=== PATIENT | female | born 1930 | race Caucasian/White ===

== ENCOUNTER 2018-03-11 12:55 | Emergency (ER) | payer MEDICARE, BC, MEDICAID ==
[2018-03-11 13:05] VITALS: BP 148/44
--- NOTE | 2018-03-11 13:34 | EDM.PDOC ---
ED HPI GENERAL MEDICAL PROBLEM - General Chief Complaint: Cardiovascular Problem Stated Complaint: SOB [id number] Time Seen by Provider: 03/11/18 13:33 Source of Information: Reports: Patient, EMS, Old Records, RN, RN Notes Reviewed History Limitations: Reports: No Limitations - History of Present Illness INITIAL COMMENTS - FREE TEXT/NARRATIVE: Pt presents to ER from home by POV with c/o "a-fib" with lightheadedness, near syncope, and mild chest pressure. Pt states that she has had similar symptoms in the past, but the episodes have been increasing in frequency and duration. She denies shortness of breath, nausea, or edema. 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 She did not take her metoprolol today. Duration: Getting Worse, Intermittent, Recurring Location: Reports: Chest, Generalized Quality: Reports: Pressure Severity: Severe Improves with: Reports: None Worsens with: Reports: None Associated Symptoms: Reports: No Other Symptoms Mid-Sternal Chest Pain Score (Numeric/FACES): 3 - Related Data Allergies Allergy/AdvReac Type Severity Reaction Status Date / Time aspirin [From Aggrenox] Allergy Cannot Verified 03/11/18 13:05 Remember naproxen sodium [From Aleve] Allergy Headache Verified 03/11/18 13:05 sulfacetamide Allergy Mouth Sores Verified 03/11/18 13:05 atorvastatin calcium AdvReac Body Aches Verified 03/11/18 13:05 [From Lipitor] dipyridamole [From Aggrenox] AdvReac Body Aches Verified 03/11/18 13:05 pravastatin sodium AdvReac Body Aches Verified 03/11/18 13:05 [From Pravachol] rosuvastatin calcium AdvReac Body Aches Verified 03/11/18 13:05 [From Crestor] Home Meds: Home Meds Acetaminophen [Tylenol Extra Strength] 1,000 mg PO Q6H PRN 10/27/13 [History] Aspirin/Calcium Carbonate/Mag [Aspirin Buffered 325 mg Tab] 325 mg PO DAILY [History] Clotrimazole/Betamethasone Dip [Lotrisone Cream] 1 applic TP DAILY 10/27/13 [ History] Loperamide [Immodium] 4 mg PO ASDIRECTED PRN 10/27/13 [History] Multivit-Min/FA/Lycopene/Lut [Centrum Silver] 1 each PO DAILY 10/27/13 [History] Sertraline [Zoloft] 25 mg PO DAILY 10/27/13 [History] Simvastatin [Zocor] 10 mg PO BEDTIME 10/27/13 [History] Furosemide 20 mg PO DAILY 03/11/18 [History] Levothyroxine 25 mcg PO ACBREAKFAST 03/11/18 [History] Metoprolol Tartrate 1.5 tab PO BID 03/11/18 [History] Past Medical History HEENT History: Reports: Cataract, Impaired Vision Other HEENT History: wears glasses Cardiovascular History: Reports: Afib, High Cholesterol, Hypertension Respiratory History: Reports: None Gastrointestinal History: Reports: GERD Genitourinary History: Reports: None 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 Musculoskeletal History: Reports: Arthritis, Osteoarthritis Neurological History: Reports: None Psychiatric History: Reports: None Endocrine/Metabolic History: Reports: Hypothyroidism, Obesity/BMI 30+ Hematologic History: Reports: Idiopathic Thrombocytopenia Immunologic History: Reports: None Oncologic (Cancer) History: Reports: None Dermatologic History: Reports: None - Infectious Disease History Infectious Disease History: Reports: Chicken Pox, Measles, Mumps - Past Surgical History Head Surgeries/Procedures: Reports: None HEENT Surgical History: Reports: Cataract Surgery GI Surgical History: Reports: Appendectomy Female Surgical History: Reports: Hysterectomy Musculoskeletal Surgical History: Reports: Knee Replacement Social & Family History - Family History Family Medical History: Noncontributory - Tobacco Use Smoking Status *Q: Never Smoker Second Hand Smoke Exposure: No - Recreational Drug Use Recreational Drug Use: No - Living Situation & Occupation Occupation: Retired ED ROS GENERAL - Review of Systems Review Of Systems: ROS reveals no pertinent complaints other than HPI. ED EXAM, GENERAL - Physical Exam Exam: See Below Exam Limited By: No Limitations General Appearance: Alert, WD/WN, No Apparent Distress, Obese Eye Exam: Bilateral Eye: Normal Inspection Ears: Hearing Grossly Normal Nose: Normal Inspection, Normal Mucosa, No Blood Throat/Mouth: Normal Inspection, Normal Lips, Normal Teeth, Normal Gums, Normal Oropharynx, Normal Voice, No Airway Compromise Head: Atraumatic, Normocephalic Neck: Normal Inspection, Supple, Non-Tender, Full Range of Motion Respiratory/Chest: No Respiratory Distress, Lungs Clear, Normal Breath Sounds, No Accessory Muscle Use, Chest Non-Tender Cardiovascular: Bradycardia, Irregularly Irregular, Other (Trace B/L lower extremity pitting edema) GI/Abdominal: Normal Bowel Sounds, Soft, Non-Tender, No Distention Back Exam: Normal Inspection Extremities: Normal Range of Motion, Non-Tender. No: Heladio's Sign Neurological: Alert, Oriented, CN II-XII Intact, Normal Cognition, No Motor/ Sensory Deficits Psychiatric: Normal Mood Skin Exam: Warm, Dry, Intact, Normal Color, No Rash EKG INTERPRETATION EKG Date: 03/11/18 Time: 13:21 Rhythm: Other (slow sinus arrhythmia, rate 52-61.) [place]: LAD-Left [place] Deviation (borderline) P-Wave: Present QRS: Normal ST-T: Normal QT: Normal Course - Vital Signs Last Recorded V/S: Last Vital Signs Temp 36.3 C 03/11/18 13:00 Pulse 42 L 03/11/18 13:00 Resp 16 03/11/18 13:00 BP 148/44 H 03/11/18 13:00 Pulse Ox 100 03/11/18 13:00 - Orders/Labs/Meds Orders: Active Orders 24 hr Category Date Time Status EKG Documentation Completion [RC] STAT Care 03/11/18 13:26 Active Peripheral IV Care [RC] . DIRECTED Care 03/11/18 13:28 Active Sodium Chloride 0.9% [Saline Flush] Med 03/11/18 13:26 Active 10 ml FLUSH ASDIRECTED PRN Peripheral IV Insertion Adult [OM.PC] Routine Oth 03/11/18 13:26 Ordered Medication Orders Sodium Chloride (Saline Flush) 10 ml FLUSH ASDIRECTED PRN PRN Reason: Keep Vein Open Last Admin: 03/11/18 13:35 Dose: 10 ml Labs: Laboratory Tests 03/11/18 03/11/18 03/11/18 Range/Units 13:30 13:30 13:30 WBC 7.6 (5.0-10.0) 10^3/uL RBC 4.04 L (4.2-5.4) 10^6/uL Hgb 12.7 D (12.0-16.0) g/dL Hct 40.6 (37.0-47.0) % MCV 100.5 H (80-100) fL MCH 31.4 (27.0-34.0) pg MCHC 31.3 L (33.0-35.0) g/dL Plt Count 111 L (150-450) 10^3/uL Neut % (Auto) 63.8 (42.2-75.2) % Lymph % (Auto) 25.0 (20.5-50.1) % [place] % (Auto) 9.3 H (2-8) % Eos % (Auto) 1.4 (1.0-3.0) % Baso % (Auto) 0.5 (0.0-1.0) % Sodium 140 (135-145) mmol/L Potassium 4.2 (3.6-5.0) mmol/L Chloride 103 (101-111) mmol/L Carbon Dioxide 26.0 (21.0-31.0) mmol/L Anion Gap 15.2 BUN 24 H (7-18) mg/dL Creatinine 1.0 (0.6-1.3) mg/dL Est Cr Clr Drug Dosing 34.02 mL/min Estimated GFR (MDRD) 53 BUN/Creatinine Ratio 24.00 Glucose 133 H (74-105) mg/dL Calcium 9.4 (8.4-10.2) mg/dl Magnesium 2.1 (1.8-2.5) mg/dL Total Bilirubin 1.1 H (0.2-1.0) mg/dL AST 27 (10-42) IU/L ALT 19 (10-60) IU/L Alkaline Phosphatase 68 (42-121) IU/L Troponin I < 0.02 (0.00-0.02) ng/ml Total Protein 7.3 (6.7-8.2) g/dl Albumin 4.2 (3.2-5.5) g/dl Globulin 3.1 Albumin/Globulin Ratio 1.35 TSH, Ultra Sensitive 6.11 H (0.45-5.33) uIu/mL Meds: Medications Generic Name Dose Route Start Last Admin Trade Name Freq PRN Reason Stop Dose Admin Sodium Chloride 10 ml 03/11/18 13:26 03/11/18 13:35 Saline Flush FLUSH 10 ml ASDIRECTED PRN Administration Keep Vein Open - Radiology Interpretation Free Text/Narrative:: [facility] Final Radiology Report Call: [phone] assistance Online chat: [email or web address] Name: KEITH MALONE Age: 87Years F Date: 03/11/2018 SSN: -- : [id number] Study: XR CHEST 1 VIEW Requesting Physician: ISRAEL WHYTE Images: 1 Addl Studies: Provided Clinical History: Contrast: Contrast Medium: Contrast Amount: Contrast Method: CONFIDENTIALITY STATEMENT This report is intended only for use by the referring physician, and only in accordance with law. If you received this in error, call [phone]. Page 1 of 1 EXAM: XR Chest, 1 View CLINICAL HISTORY: 87 years old, female; Wheezing. TECHNIQUE: Frontal view of the chest. COMPARISON: No relevant prior studies available. FINDINGS: Lungs: No lung consolidation or pulmonary edema. Pleural space: No pleural effusion or pneumothorax. Heart: The heart is enlarged. Mediastinum: The mediastinal contours are normal. Bones/joints: No acute osseous abnormality. IMPRESSION: No acute abnormality. Thank you for allowing us to participate in the care of your patient. Dictated and Authenticated by: Jaxon Young MD 03/11/2018 2:19 PM Central Time ([place] & [place]) Departure - Departure Time of Disposition: 15:30 Disposition: DC/Tfer to [facility] 02 Reason for Transfer *Q: Primary PCI Indicated Condition: Serious Clinical Impression: Paroxysmal atrial fibrillation, Bradycardia, Near syncope Forms: ED Department Discharge, Interfacility Transfer EMTALA - My Orders Last 24 Hours: My Active Orders 03/11/18 13:26 EKG Documentation Completion [RC] STAT Sodium Chloride 0.9% [Saline Flush] 10 ml FLUSH ASDIRECTED PRN Peripheral IV Insertion Adult [OM.PC] Routine 03/11/18 13:28 Peripheral IV Care [RC] . DIRECTED - Assessment/Plan Last 24 Hours: My Active Orders 03/11/18 13:26 EKG Documentation Completion [RC] STAT Sodium Chloride 0.9% [Saline Flush] 10 ml FLUSH ASDIRECTED PRN Peripheral IV Insertion Adult [OM.PC] Routine 03/11/18 13:28 Peripheral IV Care [RC] . DIRECTED
[2018-03-11] MEDS: Sodium Chloride 0.9% 10 ML Syringe FLUSH PRN (13:35)
[2018-03-11 14:00] LABS: ANION GAP 15.2; CHLORIDE,CL 103 mmol/L (101-111); SODIUM,NA 140 mmol/L (135-145)
== END 2018-03-11 17:28 ==
LOC: DL.ED 12:55
DX: I48.0 Paroxysmal atrial fibrillation (principal); R00.1 Bradycardia, unspecified; R55 Syncope and collapse; I48.91 Unspecified atrial fibrillation; E78.00 Pure hypercholesterolemia, unspecified; I10 Essential (primary) hypertension; K21.9 Gastro-esophageal reflux disease without esophagitis; Z79.899 Other long term (current) drug therapy; Z88.8 Allergy status to other drugs, medicaments and biological substances; Z79.82 Long term (current) use of aspirin; E03.9 Hypothyroidism, unspecified
CPT/HCPCS: 36415; 71045; 80053; 83735; 84443; 84484; 85025; 93005; 93010; 99284; 99285; J7050

== ENCOUNTER 2018-08-17 11:39 | Emergency (ER) | payer MEDICARE, BC, MEDICAID ==
[2018-08-17 12:07] VITALS: BP 156/54
--- NOTE | 2018-08-17 12:10 | EDM.PDOC ---
ED HPI GENERAL MEDICAL PROBLEM - General Stated Complaint: BLOOD IN STOOL Time Seen by Provider: 08/17/18 12:00 Source of Information: Reports: Patient History Limitations: Reports: No Limitations - History of Present Illness INITIAL COMMENTS - FREE TEXT/NARRATIVE: This 87 yo female patient reports to the ED after noticing blood in her urine today. The patient reports similar symptoms in the past related to a UTI. The patient reports diffuse lower back and lower abdomen pain at this time. Onset: Today Duration: Constant Location: Reports: Generalized Quality: Reports: Other Severity: Mild Improves with: Reports: None Worsens with: Reports: None Context: Reports: Other Associated Symptoms: Reports: No Other Symptoms - Related Data Allergies Allergy/AdvReac Type Severity Reaction Status Date / Time aspirin [From Aggrenox] Allergy Cannot Verified 08/17/18 11:49 Remember naproxen sodium [From Aleve] Allergy Headache Verified 08/17/18 11:49 sulfacetamide Allergy Mouth Sores Verified 08/17/18 11:49 atorvastatin calcium AdvReac Body Aches Verified 08/17/18 11:49 [From Lipitor] dipyridamole [From Aggrenox] AdvReac Body Aches Verified 08/17/18 11:49 pravastatin sodium AdvReac Body Aches Verified 08/17/18 11:49 [From Pravachol] rosuvastatin calcium AdvReac Body Aches Verified 08/17/18 11:49 [From Crestor] Home Meds: Home Meds Acetaminophen [Tylenol Extra Strength] 1,000 mg PO Q6H PRN 10/27/13 [History] Clotrimazole/Betamethasone Dip [Lotrisone Cream] 1 applic TP DAILY 10/27/13 [ History] Loperamide [Immodium] 4 mg PO ASDIRECTED PRN 10/27/13 [History] Multivit-Min/FA/Lycopene/Lut [Centrum Silver] 1 each PO DAILY 10/27/13 [History] Sertraline [Zoloft] 25 mg PO DAILY 10/27/13 [History] Simvastatin [Zocor] 10 mg PO BEDTIME 10/27/13 [History] Furosemide 20 mg PO DAILY 03/11/18 [History] Levothyroxine 25 mcg PO ACBREAKFAST 03/11/18 [History] Apixaban [Eliquis] 5 mg PO BID 08/17/18 [History] Pantoprazole Sodium 40 mg PO BID 08/17/18 [History] Sotalol HCl [Sotalol] 80 mg PO BID 08/17/18 [History] Past Medical History HEENT History: Reports: Cataract, Impaired Vision Other HEENT History: wears glasses Cardiovascular History: Reports: Afib, High Cholesterol, Hypertension Respiratory History: Reports: None Gastrointestinal History: Reports: GERD Genitourinary History: Reports: None 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 Musculoskeletal History: Reports: Arthritis, Osteoarthritis Neurological History: Reports: None Psychiatric History: Reports: None Endocrine/Metabolic History: Reports: Hypothyroidism, Obesity/BMI 30+ Hematologic History: Reports: Idiopathic Thrombocytopenia Immunologic History: Reports: None Oncologic (Cancer) History: Reports: None Dermatologic History: Reports: None - Infectious Disease History Infectious Disease History: Reports: Chicken Pox, Measles, Mumps - Past Surgical History Head Surgeries/Procedures: Reports: None HEENT Surgical History: Reports: Cataract Surgery GI Surgical History: Reports: Appendectomy Female Surgical History: Reports: Hysterectomy Musculoskeletal Surgical History: Reports: Knee Replacement Social & Family History - Family History Family Medical History: Noncontributory - Living Situation & Occupation Occupation: Retired ED ROS GENERAL - Review of Systems Review Of Systems: ROS reveals no pertinent complaints other than HPI. ED EXAM, RENAL/ - Physical Exam Exam: See Below Exam Limited By: No Limitations General Appearance: Alert, WD/WN, No Apparent Distress Eye Exam: Bilateral Eye: EOMI, Normal Inspection, PERRL Ears: Normal External Exam, Normal Canal, Hearing Grossly Normal, Normal TMs, Other (bilateral hearing aids (given to daughter during assessment)) Nose: Normal Inspection, Normal Mucosa, No Blood Throat/Mouth: Normal Inspection, Normal Lips, Normal Teeth, Normal Gums, Normal Oropharynx, Normal Voice, No Airway Compromise Head: Atraumatic, Normocephalic Neck: Normal Inspection Respiratory/Chest: No Respiratory Distress, Lungs Clear, Normal Breath Sounds, No Accessory Muscle Use, Chest Non-Tender Cardiovascular: Normal Peripheral Pulses, Regular Rate, Rhythm, No Edema, No Gallop, No JVD, No Murmur, No Rub GI/Abdominal: Normal Bowel Sounds, Soft, No Organomegaly, No Distention, No Abnormal Bruit, No Mass, Tender (diffuse lower abdominal tenderness) (Female) Exam: Deferred Rectal (Female) Exam: Deferred Back Exam: Normal Inspection, Full Range of Motion, Other (mild lower back discomfort) Extremities: Normal Inspection, Normal Range of Motion, Non-Tender, Normal Capillary Refill, No Pedal Edema Neurological: Alert, Oriented, CN II-XII Intact, Normal Cognition, Normal Gait, Normal Reflexes, No Motor/Sensory Deficits Psychiatric: Normal Affect, Normal Mood Skin Exam: Warm, Dry, Intact, Normal Color, No Rash Lymphatic: No Adenopathy Course - Vital Signs Last Recorded V/S: Last Vital Signs Temp 36.8 C 08/17/18 11:44 Pulse 66 08/17/18 11:44 Resp 18 08/17/18 11:44 BP 156/54 H 08/17/18 11:44 Pulse Ox 99 08/17/18 11:44 - Orders/Labs/Meds Labs: Laboratory Tests 08/17/18 08/17/18 08/17/18 Range/Units 11:46 11:52 11:52 WBC 6.4 (5.0-10.0) 10^3/uL RBC 4.17 L (4.2-5.4) 10^6/uL Hgb 12.9 (12.0-16.0) g/dL Hct 40.7 (37.0-47.0) % MCV 97.6 (80-100) fL MCH 30.9 (27.0-34.0) pg MCHC 31.7 L (33.0-35.0) g/dL Plt Count 113 L (150-450) 10^3/uL Neut % (Auto) 66.3 (42.2-75.2) % Lymph % (Auto) 23.6 (20.5-50.1) % [place] % (Auto) 8.9 H (2-8) % Eos % (Auto) 0.9 L (1.0-3.0) % Baso % (Auto) 0.3 (0.0-1.0) % Sodium 138 (135-145) mmol/L Potassium 3.9 (3.6-5.0) mmol/L Chloride 103 (101-111) mmol/L Carbon Dioxide 25.0 (21.0-31.0) mmol/L Anion Gap 13.9 BUN 25 H (7-18) mg/dL Creatinine 0.8 (0.6-1.3) mg/dL Est Cr Clr Drug Dosing 44.40 mL/min Estimated GFR (MDRD) > 60 BUN/Creatinine Ratio 31.25 Glucose 87 (74-105) mg/dL Calcium 9.3 (8.4-10.2) mg/dl Total Bilirubin 1.0 (0.2-1.0) mg/dL AST 26 (10-42) IU/L ALT 17 (10-60) IU/L Alkaline Phosphatase 78 (42-121) IU/L Total Protein 6.9 (6.7-8.2) g/dl Albumin 4.0 (3.2-5.5) g/dl Globulin 2.9 Albumin/Globulin Ratio 1.38 Urine Color Red (YELLOW) Urine Appearance Turbid (CLEAR) Urine pH 6.0 (5.0-9.0) Ur Specific [place] 1.010 (1.005-1.030) Urine Protein 100 H (NEGATIVE) Urine Glucose (UA) Negative (NEGATIVE) Urine Ketones Negative (NEGATIVE) Urine Occult Blood Large H (NEGATIVE) Urine Nitrite Negative (NEGATIVE) Urine Bilirubin Negative (NEGATIVE) Urine Urobilinogen 0.2 (0.2-1.0) mg/dL Ur Leukocyte Esterase Negative (NEGATIVE) Urine RBC >100 H /HPF Urine WBC 0-5 (0-5/HPF) /HPF Ur Epithelial Cells Rare /HPF Amorphous Sediment Rare (0/HPF) /HPF Urine Bacteria Rare (0-FEW/HPF) /HPF - Re-Assessments/Exams Free Text/Narrative Re-Assessment/Exam: 08/17/18 12:37 Discussed the examination and lab results with the patient and her family. The patient will be sent to get a CT of the abdomen and pelvis due to gross hematuria. Departure - Departure Time of Disposition: 14:42 Disposition: Home, Self-Care 01 Condition: Fair Clinical Impression: Gross hematuria - Discharge Information *PRESCRIPTION DRUG MONITORING PROGRAM REVIEWED*: Not Applicable *COPY OF PRESCRIPTION DRUG MONITORING REPORT IN PATIENT GINO: Not Applicable Instructions: Hematuria, Adult Forms: ED Department Discharge Care Plan Goals: The patient and family were advised of the examination, lab and CT results during the visit. The patient was advised to follow-up with her primary care facility early next week for continued evaluation and management. If the patient has any additional symptoms or concerns, the patient should either return to the emergency department or visit her primary care facility.
[2018-08-17 12:22] LABS: ANION GAP 13.9; CHLORIDE,CL 103 mmol/L (101-111); SODIUM,NA 138 mmol/L (135-145)
--- NOTE | 2018-08-17 14:24 | CT ---
Clinical history: 82-year-old hypertensive 230 pound female with hematuria who is had previous appendectomy and hysterectomy. Scan technique: Volume acquisition of data from the abdomen and pelvis (kidneys/ureters/bladder) obtained with stone protocol i.e. no oral or IV contrast while lying supine on the multislice CT scanner [facility]. All data archived in the PACS system for storage, reformatting and study. Interpretation: 1. Cardiac pacemaker. Lung bases clear. Densely calcified "cast" normal caliber aortoiliac vessels. No aneurysm. 2. Moderate large hiatus hernia incarcerated in the lower middle mediastinum. 3. 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 Age/gender appropriate bone mineral density. 4. Normal reniform size, axis and configuration. No cystic or solid renal cortical mass lesion identified on this exam without IV contrast. Multiple phlebolith-like radiopacities in the pelvis but no sign of urolithiasis or obstructive uropathy i.e. no ureterectasis or pyelocaliectasis. Near empty urinary bladder without intraluminal calcification (mucosal wall mass?). Follow-up please. 5. Inhomogeneously dense gallbladder (stones?). Ultrasound suggested. Unenhanced liver, stomach, spleen, pancreas and adrenal glands unremarkable. 6. Several diverticula sigmoid colon without associated signs of inflammation. 7. No pelvic or abdominal mass lesion. No mesenteric or retroperitoneal lymphadenopathy, inflammatory "dirty" peritoneal fat, signs of mechanical bowel obstruction, ascites or free intraperitoneal air. CONCLUSION: Hiatus hernia. Suspicious appearance gallbladder and the unenhanced urinary bladder. Sigmoid diverticulosis. Unenhanced kidneys reveal no sign of cortical mass, urolithiasis or obstructive uropathy. Recommend routine ultrasound follow-up (clinic) gallbladder and urinary bladder.
== END 2018-08-17 14:59 | disposition home or self-care (01) ==
LOC: DL.ED 11:39
DX: R31.0 Gross hematuria (principal); I10 Essential (primary) hypertension; E66.9 Obesity, unspecified; Z88.2 Allergy status to sulfonamides; Z88.8 Allergy status to other drugs, medicaments and biological substances; Z79.899 Other long term (current) drug therapy
CPT/HCPCS: 36415; 74176; 80053; 81001; 85025; 99284